=== PATIENT | female | born 1990 | race Caucasian/White ===

== ENCOUNTER → 2021-09-08 10:12 | Outpatient (BNVA) | payer OTHER, SELFPAY | PROVIDERS: Visit Provider Surgery | DX: Z13.89 Encounter for screening for other disorder (principal) ==

== ENCOUNTER 2021-09-08 10:40 | Outpatient (REF) | payer OTHER, SELFPAY ==
--- NOTE | ~2021-09-08 | US_ITS ---
EXAMINATION: US ABDOMEN LIMITED CLINICAL INFORMATION: Abdominal pain. COMPARISON: None TECHNIQUE: Real-time imaging of the right upper quadrant abdominal viscera. FINDINGS: PANCREAS: The visualized portion of the pancreas head and body are normal, portion of the pancreatic body and tail, not visualized are obscured by bowel gas. LIVER: Normal. The liver is normal in size. The liver contour is normal. Increased echogenicity of the liver parenchyma, this can be seen in the setting of hepatic steatosis or liver parenchymal disease. No focal hepatic lesion. There is no intrahepatic biliary duct dilatation seen. GALLBLADDER: Normal. The gallbladder is physiologically distended without evidence of stones, sludge, polyps, wall thickening or pericholecystic fluid. COMMON BILE DUCT: Normal in caliber measuring 0.3 cm in diameter. RIGHT KIDNEY: Normal. No hydronephrosis. No renal calculi or focal parenchymal lesions. The kidney measures 12 cm in maximum dimension. FREE FLUID: None. US/US abdomen limited IMPRESSION: Exam somewhat limited due to patient's body habitus and bowel gas. No evidence of gallbladder disease or gallstones. Increased echogenicity of the liver parenchyma, this can be seen in the setting of hepatic steatosis or liver parenchymal disease.
[2021-09-08 12:07] LABS: Hematocrit 40.8 % (37.0-47.0); Hemoglobin 13.6 g/dl (12.0-16.0); Mean Corpuscular HGB Conc 33.3 g/dl (31.0-35.0); Mean Corpuscular Hemoglobin 31.4 pg (27.0-33.0); Mean Corpuscular Volume 94.2 fL (80.0-98.0); Mean Platelet Volume 9.7 fL (9.4-12.3); Platelet Count 335 X10*3/uL (160-400); Red Blood Count 4.33 X10*6/uL (4.20-5.50); Red Cell Distribution Width 12.2 % (11.0-16.0); White Blood Count 5.7 X10*3/uL (4.8-10.8)
[2021-09-08 12:23] LABS: Alanine Aminotransferase 29 U/L (0-31); Albumin Level 4.4 g/dL (3.5-5.0); Alkaline Phosphatase 78 U/L (39-117); Anion Gap 11 (12-20); Aspartate Amino Transferase 19 U/L (5-31); Bilirubin Direct < 0.2 mg/dL (0.0-0.5); Bilirubin Total 0.3 mg/dL (0.0-1.0); Blood Urea Nitrogen 13 mg/dL (9-16); Calcium 9.9 mg/dL (8.4-10.2); Carbon Dioxide 28 mmol/L (22-29); Chloride 103 mmol/L (96-108); Estimated Glomerular Filt Rate > 60; Glucose Random 92 mg/dL (60-115); Potassium 4.6 mmol/L (3.3-5.1); Sodium 137 mmol/L (135-145); Total Protein 7.8 g/dL (6.5-8.0)
== END 2021-09-08 10:41 | disposition home or self-care (01) ==
LOC: HO.US 10:40
PROVIDERS: Visit Provider Surgery
DX: R10.9 Unspecified abdominal pain (principal)
CPT/HCPCS: 36415; 76705; 80048; 80076; 85027

== ENCOUNTER 2021-09-09 06:46 | Observation (INO) | payer OTHER, SELFPAY ==
[2021-09-09] VITALS (7 sets, daily range): BP systolic 110–152; BP diastolic 55–78; PULSE 74–103; RESP 12–18; TEMP 36.8–36.9; O2SAT 96–99; BMI 33.4
--- NOTE | ~2021-09-09 | CT_ITS ---
EXAMINATION: CT ABDOMEN AND PELVIS WITH CONTRAST CLINICAL INFORMATION: Right upper quadrant pain and recent negative ultrasound COMPARISON: Ultrasound abdomen from 09/08/2021 TECHNIQUE: Multidetector volumetric images were obtained from the superior aspect of the liver through the pubic symphysis following administration 85 mL of Omnipaque 350 intravenous contrast. Sagittal and coronal reformatted images were obtained on the technologist's workstation. Oral contrast: No This CT examination was performed using dose optimization techniques as appropriate, variously including the following: *Automated exposure control *Adjustment of mA and/or kV according to patient size (this includes techniques or standardized protocols for targeted exams where dose is matched to indication/reason for exam; i.e. extremities or head) *Use of iterative reconstruction technique DLP: 930 mGy-cm FINDINGS: LUNG BASES: Bibasilar atelectasis. LIVER, GALLBLADDER, AND BILIARY TREE: The liver is normal in size and shape. Decreased hepatic attenuation suggesting hepatic steatosis. No focal hepatic lesion or biliary ductal dilatation is present. The gallbladder is unremarkable with no evidence of radiopaque gallstones, gallbladder wall thickening, or obvious pericholecystic inflammatory changes. PANCREAS: Unremarkable. SPLEEN: Unremarkable. ADRENAL GLANDS: Unremarkable. KIDNEYS AND URETERS: Nonobstructive calculus in the left renal upper pole measuring 2 mm without hydronephrosis. No right-sided nephrolithiasis or hydronephrosis. BLADDER: Unremarkable. GASTROINTESTINAL TRACT: The small and large bowel are unremarkable. The appendix is unremarkable. ABDOMINAL WALL: No significant hernia is appreciated. LYMPH NODES: No enlarged lymph nodes per size criteria. VASCULAR: Abdominal aorta is nonaneurysmal. PELVIC VISCERA: Anteverted uterus with fluid in the endometrial cavity, correlation with phase of menstruation. Bilateral adnexal/ovarian hypodensities demonstrating fluid attenuation statistically representing cyst. Trace free fluid in the pelvis, possibly physiologic. OSSEOUS STRUCTURES: No large lytic or blastic lesions are noted. CT/CT abdomen pelvis w con IMPRESSION: 1. No acute process of the abdomen or pelvis visualized. 2. Decreased hepatic attenuation suggesting hepatic steatosis. 3. Nonobstructive calculus in the left renal upper pole measuring 2 mm without hydronephrosis 4. Anteverted uterus with fluid in the endometrial cavity, correlation with phase of menstruation. Bilateral adnexal/ovarian hypodensities demonstrating fluid attenuation statistically representing cyst. Trace free fluid in the pelvis, possibly physiologic.
--- NOTE | ~2021-09-09 | NM_ITS ---
EXAMINATION: BILIARY TRACT IMAGING STUDY WITH CCK CLINICAL INFORMATION: Right upper quadrant pain. COMPARISON: CT abdomen/pelvis done earlier today. Abdominal ultrasound dated from 09/08/2021. TECHNIQUE: Serial gamma scintillation camera images were obtained over the abdomen for a total observation period of minutes following the intravenous administration of 5 mCi Tc-99m mebrofenin. FINDINGS: There is good concentration of activity in the liver by 5 minutes post injection. Biliary activity is visualized by 10-15 minutes. The gallbladder is well visualized by 10 minutes. Small bowel is well visualized by 15 minutes. At 45 minutes post radiopharmaceutical injection, Ensure was administered and an additional 60 minutes of images were obtained. There is good emptying of the gallbladder. By the end of the study there is good clearance of activity from the liver and visualization of diffuse small bowel activity. The calculated gallbladder ejection fraction is lesser than 35% (10% at 20 minutes, 9% at 30 minutes, and 5% at 60 minutes). NM/NM hepatobiliary wo pharm IMPRESSION: Visualization of the gallbladder is evidence of a patent cystic duct and strong evidence against the diagnosis of acute cholecystitis. The common bile duct is patent. Gallbladder emptying and ejection fraction are normal. Liver function appears normal.
--- NOTE | 2021-09-09 07:28 | ED_ITS ---
HPI - Abdominal Pain General Chief Complaint: Abdominal Pain Stated Complaint: Abd pain Time Seen by Provider: 09/09/21 07:28 Source: patient Mode of arrival: ambulatory Limitations: no limitations History of Present Illness MD elicited complaint: abdominal pain Pertinent past history: none Onset (ago): day(s) (over the weekend) Pain Consistency: intermittent Location: RUQ Severity: moderate Quality: stabbing Radiation: none Migration to: no migration Exacerbating factors: nothing Relieving factors: nothing Associated symptoms: nausea Related Data Home Medications Medication Instructions Recorded Confirmed No Known Home Meds 09/08/21 09/08/21 Allergies Allergy/AdvReac Type Severity Reaction Status Date / Time No Known Allergies Allergy Unverified 09/08/21 10:25 [No Known Allergies*] Review of Systems Review of Systems Constitutional : No Weight loss, No Fever, No Chills ENT/Mouth : No sore throat, No Rhinorrhea Eyes: No Swelling, No Redness Cardiovascular : No Chest Pain, No SOB, NoEdema Respiratory : No Cough, No Sputum, No Wheezing Gastrointestinal : Positive Nausea, no Vomiting, no Diarrhea, positive abdominal Pain, No Hematochezia, No Melena Genitourinary : No Dysuria, No Urinary Frequency, No Hematuria, No Urgency Musculoskeletal : No joint pain, No Myalgias, No Joint Swelling Skin : No Skin Lesions, No rash Neuro : No Weakness, No Numbness, No Dizziness, No Headache Psych : No Anxiety/Panic, No Depression Heme/Lymph: No Bruising, No Lymphadenopathy Endocrine : No Polyuria, No Polydipsia All other systems reviewed and are negative. [facility] Past Medical History Attestation statement: The following information was validated with the patient. Medical History Abdominal pain Surgical History H/O lumpectomy History of ear surgery Social History Social History Alcohol intake: never Patient Tobacco Use Status: Never used Tobacco Advance Directives: No Advance Directives Information Provided: No Physical Exam ED Vital Signs: Vital Signs - 24 hr 09/09/21 06:54 09/09/21 09:37 09/09/21 10:56 Temperature 98.3 F Pulse Rate 103 H 94 74 Respiratory Rate 18 12 Blood Pressure 152/77 H 137/78 120/70 Pulse Oximetry 96 99 96 09/09/21 12:28 Temperature Pulse Rate 85 Respiratory Rate 16 Blood Pressure 110/55 L Pulse Oximetry 97 BMI result Body Mass Index 33.4 Appearance: Alert. Oriented X3. Mild acute distress. Anxious appears uncomfortable Eyes: Pupils equal, round and reactive to light. ENT: Pharynx normal. Neck: Normal inspection. Neck supple. CVS: Normal heart rate and rhythm. Pulses normal. Respiratory: No respiratory distress. Breath sounds normal. Abdomen: Soft and moderate ttp in RUQ with + huntley's sign also ttp in epigast aimee area Skin: Skin warm and dry. Normal skin color. Normal skin turgor. Extremities: No lower extremity edema. No calf ttp Neuro: Oriented X 3. No motor deficit. No sensory deficit. Course Course Course Narrative: CT scan negative still with pain HIDA scan ordered for possible acalculous cholecystitis, IV toradol ordered signed out to Dr. Castillo pending HIDA scan 230pm MDM - Abdominal Pain MDM Narrative Medical decision making narrative: 30 yo female with no sig PMH here with c/o RUQ and epigastric pain had US yesterday that showed fatty liver but no GB pathology. She has no risk factors for PUD - no NSAID use. At this time she is very ttp in RUQ and epigastric area will obtain labs, hydrate, CT scan for pancreatitis, duodenitis. Dispo per results and findings. Lab Data Result diagrams: 09/09/21 07:43 09/09/21 07:43 Labs: Lab Results 09/09/21 09/09/21 09/09/21 Range/Units 07:43 07:43 08:26 WBC 5.4 (4.8-10.8) X10*3/uL RBC 4.28 (4.20-5.50) X10*6/uL Hgb 13.4 (12.0-16.0) g/dl Hct 39.6 (37.0-47.0) % MCV 92.5 (80.0-98.0) fL MCH 31.3 (27.0-33.0) pg MCHC 33.8 (31.0-35.0) g/dl RDW 12.4 (11.0-16.0) % Plt Count 299 (160-400) X10*3/uL MPV 9.0 L (9.4-12.3) fL Immature Gran % (Auto) 0.2 (0.0-0.4) % Neut % (Auto) 70.0 (45-73) % Lymph % (Auto) 23.2 (20-40) % [place] % (Auto) 5.8 (2-11) % Eos % (Auto) 0.6 (0-4) % Baso % (Auto) 0.2 (0-2) % Lymph # (Auto) 1.2 (1.2-4.9) X10*3/uL [place] # (Auto) 0.3 (0.1-1.2) X10*3/uL Eos # (Auto) 0.0 (0.0-0.4) X10*3/uL Baso # (Auto) 0.0 (0.0-0.2) X10*3/uL Abs Immat Gran (auto) 0.01 (0.00-0.03) X10*3/uL Absolute Neuts (auto) 3.8 (2.0-8.3) x10*3/uL Absolute Nucleated RBC 0.000 (0.0-0.012) X10*3/uL Nucleated RBC % (auto) 0.0 (0.0-0.2) /100WBC Sodium 136 (135-145) mmol/L Potassium 4.3 (3.3-5.1) mmol/L Chloride 104 (96-108) mmol/L Carbon Dioxide 26 (22-29) mmol/L Anion Gap 10 L (12-20) BUN 12 (9-16) mg/dL Creatinine 0.72 (0.5-1.4) mg/dL Estim Creat Clear Calc 142.4 Estimated GFR > 60 Random Glucose 101 (60-115) mg/dL Calcium 9.6 (8.4-10.2) mg/dL Magnesium 2.1 (1.6-2.6) mg/dL Total Bilirubin 0.5 (0.0-1.0) mg/dL Direct Bilirubin 0.2 (0.0-0.5) mg/dL AST 19 (5-31) U/L ALT 26 (0-31) U/L Alkaline Phosphatase 77 (39-117) U/L Troponin I High Sens (<3.5-17.0) ng/L Total Protein 7.3 (6.5-8.0) g/dL Albumin 4.2 (3.5-5.0) g/dL Lipase 13 (8-78) U/L Beta HCG, Quant < 2 mIU/mL Urine Color Urine Appearance Urine pH (5.0-8.0) Ur Specific [place] (1.005-1.025) Urine Protein (NEG-TRACE) MG/DL Urine Glucose (UA) (NEG) MG/DL Urine Ketones (NEG) MG/DL Urine Blood (NEG) Urine Nitrite (NEG) Ur Leukocyte Esterase (NEG) Urine RBC (0) /HPF Urine WBC (0-4) /HPF Ur Squamous Epith Cells /LPF Urine Bacteria /LPF Urine Test NEGATIVE (NEGATIVE) 09/09/21 09/09/21 Range/Units 09:27 10:44 WBC (4.8-10.8) X10*3/uL RBC (4.20-5.50) X10*6/uL Hgb (12.0-16.0) g/dl Hct (37.0-47.0) % MCV (80.0-98.0) fL MCH (27.0-33.0) pg MCHC (31.0-35.0) g/dl RDW (11.0-16.0) % Plt Count (160-400) X10*3/uL MPV (9.4-12.3) fL Immature Gran % (Auto) (0.0-0.4) % Neut % (Auto) (45-73) % Lymph % (Auto) (20-40) % [place] % (Auto) (2-11) % Eos % (Auto) (0-4) % Baso % (Auto) (0-2) % Lymph # (Auto) (1.2-4.9) X10*3/uL [place] # (Auto) (0.1-1.2) X10*3/uL Eos # (Auto) (0.0-0.4) X10*3/uL Baso # (Auto) (0.0-0.2) X10*3/uL Abs Immat Gran (auto) (0.00-0.03) X10*3/uL Absolute Neuts (auto) (2.0-8.3) x10*3/uL Absolute Nucleated RBC (0.0-0.012) X10*3/uL Nucleated RBC % (auto) (0.0-0.2) /100WBC Sodium (135-145) mmol/L Potassium (3.3-5.1) mmol/L Chloride (96-108) mmol/L Carbon Dioxide (22-29) mmol/L Anion Gap (12-20) BUN (9-16) mg/dL Creatinine (0.5-1.4) mg/dL Estim Creat Clear Calc Estimated GFR Random Glucose (60-115) mg/dL Calcium (8.4-10.2) mg/dL Magnesium (1.6-2.6) mg/dL Total Bilirubin (0.0-1.0) mg/dL Direct Bilirubin (0.0-0.5) mg/dL AST (5-31) U/L ALT (0-31) U/L Alkaline Phosphatase (39-117) U/L Troponin I High Sens < 3.5 (<3.5-17.0) ng/L Total Protein (6.5-8.0) g/dL Albumin (3.5-5.0) g/dL Lipase (8-78) U/L Beta HCG, Quant mIU/mL Urine Color YELLOW Urine Appearance CLEAR Urine pH 6.0 (5.0-8.0) Ur Specific [place] 1.010 (1.005-1.025) Urine Protein NEG (NEG-TRACE) MG/DL Urine Glucose (UA) NEG (NEG) MG/DL Urine Ketones NEG (NEG) MG/DL Urine Blood TRACE (NEG) Urine Nitrite NEG (NEG) Ur Leukocyte Esterase NEG (NEG) Urine RBC 0-2 (0) /HPF Urine WBC 0-2 (0-4) /HPF Ur Squamous Epith Cells TRACE /LPF Urine Bacteria NONE /LPF Urine Test (NEGATIVE) ECG Data Attestation: I personally reviewed and interpreted this ECG as follows: ECG interpretation date: 09/09/21 ECG interpretation time: 10:19 Interpretation: Rate: 76 Rhythm: NSR [place]: normal Normal P waves. Normal HILARIO. Normal QRS complex. ST T wave : normal no EMELI qTC: normal prior studies: no acute ischemia The study has been interpreted contemporaneously by me. Discharge Plan Discharge Clinical Impression: Abdominal pain Patient Disposition: Still a Patient Prescriptions: No Action No Known Home Meds 0RF
[2021-09-09 07:47] LABS: MANUAL DIFF FLAG NO
[2021-09-09 07:54] LABS: Basophils Percent Auto 0.2 % (0-2); Eosinophils Percent Auto 0.6 % (0-4); Hematocrit 39.6 % (37.0-47.0); Hemoglobin 13.4 g/dl (12.0-16.0); Imm Gran Abs Auto 0.01 X10*3/uL (0.00-0.03); Imm Gran Pct Auto 0.2 % (0.0-0.4); Lymphocytes Absolute Auto 1.2 X10*3/uL (1.2-4.9); Lymphocytes Percent Auto 23.2 % (20-40); Mean Corpuscular HGB Conc 33.8 g/dl (31.0-35.0); Mean Corpuscular Hemoglobin 31.3 pg (27.0-33.0); Mean Corpuscular Volume 92.5 fL (80.0-98.0); Monocytes Absolute Auto 0.3 X10*3/uL (0.1-1.2); Monocytes Percent Auto 5.8 % (2-11); Neutrophils Absolute Auto 3.8 x10*3/uL (2.0-8.3); Platelet Count 299 X10*3/uL (160-400); Red Blood Count 4.28 X10*6/uL (4.20-5.50); Red Cell Distribution Width 12.4 % (11.0-16.0); White Blood Count 5.4 X10*3/uL (4.8-10.8)
[2021-09-09] MEDS: diphenhydrAMINE HCL 50 MG/ML VIAL 25 MG IVPUSH (07:57)
[2021-09-09] MEDS: 0.9 % Sodium Chloride 1,000 ML 999 ML IVCONT (07:57)
[2021-09-09] MEDS: Metoclopramide HCl 10 MG/2 ML VIAL 5 MG IVPUSH (07:59)
[2021-09-09] MEDS: Famotidine/PF 20 MG/2 ML VIAL IVPUSH (08:01)
[2021-09-09 08:07] LABS: Alanine Aminotransferase 26 U/L (0-31); Albumin Level 4.2 g/dL (3.5-5.0); Alkaline Phosphatase 77 U/L (39-117); Anion Gap 10 (12-20); Aspartate Amino Transferase 19 U/L (5-31); Bilirubin Direct 0.2 mg/dL (0.0-0.5); Bilirubin Total 0.5 mg/dL (0.0-1.0); Blood Urea Nitrogen 12 mg/dL (9-16); Calcium 9.6 mg/dL (8.4-10.2); Carbon Dioxide 26 mmol/L (22-29); Chloride 104 mmol/L (96-108); Creatinine Clr Calc Pharmacy 142.4; Estimated Glomerular Filt Rate > 60; Glucose Random 101 mg/dL (60-115); Lipase 13 U/L (8-78); Magnesium 2.1 mg/dL (1.6-2.6); Potassium 4.3 mmol/L (3.3-5.1); Sodium 136 mmol/L (135-145); Total Protein 7.3 g/dL (6.5-8.0)
[2021-09-09 08:12] LABS: HCG Quantitative < 2 mIU/mL
[2021-09-09 08:39] LABS: UPreg QC Valid YES; Urine Pregnancy NEGATIVE (NEGATIVE)
[2021-09-09] MEDS: iohexoL 350 MG/ML 100 ML INFUS..BTL 85 ML IV (08:55)
[2021-09-09] MEDS: Ketorolac Tromethamine 30 MG/ML VIAL IVPUSH ×2 (09:39→23:14)
[2021-09-09 09:40] LABS: Appearance Urine CLEAR; Color Urine YELLOW; Glucose Urine UA NEG (NEG); Leukocyte Esterase Urine NEG (NEG); Nitrite Urine NEG (NEG); UACC Culture Trigger NO; Urine Blood TRACE (NEG); Urine Ketones NEG (NEG); Urine Protein NEG (NEG-TRACE)
[2021-09-09 10:00] LABS: RBC Urine 0-2 /HPF (0); WBC Urine 0-2 /HPF (0-4)
--- NOTE | 2021-09-09 10:02 | ECG_ITS ---
Test Reason : abdominal pain Blood Pressure : / mmHG Vent. Rate : 076 BPM Atrial Rate : 076 BPM P-R Int : 162 ms QRS Dur : 092 ms QT Int : 384 ms P-R-T Axes : 052 041 016 degrees QTc Int : 432 ms Normal sinus rhythm Normal ECG No significant changes when compared with the previous EKG of 08 september 2018 Referred By: Abiola Apple Electronically Signed By:LEONIE GRACE
[2021-09-09 10:03] LABS: Squamous Epithelial Cell Urine TRACE /LPF
[2021-09-09] MEDS: HYDROmorphone HCl 0.5 MG/0.5 ML SYRINGE IVPUSH ×2 (10:29→16:27)
[2021-09-09 11:29] LABS: Troponin-I High Sensitivity < 3.5 ng/L (<3.5-17.0)
--- NOTE | 2021-09-09 13:30 | PC.NURSE ---
pt in Nuc Med
[2021-09-09] MEDS: ondansetron HCL 4 MG/2 ML VIAL IVPUSH (16:27)
--- NOTE | 2021-09-09 16:30 | P.HPGS_ITS ---
History of Present Illness History of Present Illness Date of Service: 09/17/21 Chief complaint: Right sided rib pain Narrative: Sienna Goodson is a 30 year old female who came to the ED this morning because of pain initially thought to be on the right upper quadrant. She says that she has been using this for about 3 days now. This had been practically constant. I had actually seen her in the office yesterday. I had for an ultrasound which did not reveal any gallstones or any allergy. Her LFTs as well as her CBC with or within normal. She were ever states that the pain was severe at around 02:30 this morning. She describes this as worse when she is taking deep breaths or when she tries to sit up from bed. This seems to be worse with movement as well. She says that because of her severe painy, she was nauseous but she otherwise has had no vomiting. She denies any association of her pain with oral intake or meals. She denies any fever or chills. She did mention that she may have had some watery stools yesterday. Review of Systems Constitutional: Constitutional: Denies chills and Denies fever(s) Cardiovascular: Cardiovascular: Denies chest pain, Denies dyspnea and Denies dyspnea on exertion Respiratory: Respiratory: Denies cough, Denies dyspnea and Denies dyspnea on exertion Gastrointestinal: Gastrointestinal: Denies hematochezia and Denies change in bowel habits Genitourinary: Genitourinary: Denies hematuria Musculoskeletal: Musculoskeletal: Denies back pain and Denies limited range of motion Neurologic: Denies focal weakness and Denies convulsions Psychiatric: Psychiatric: Denies depression and Denies mood swings [facility] Past Medical History Medical History (Updated 09/16/21 @ 00:03 by Alvarado Mercedes) Abdominal pain Rib pain Surgical History Surgical History H/O lumpectomy History of ear surgery Social History Social History Alcohol intake: never Patient Tobacco Use Status: Never used Tobacco service: No Current occupational status: employed Meds Allergies Allergy/AdvReac Type Severity Reaction Status Date / Time No Known Allergies Allergy Unverified 09/08/21 10:25 [No Known Allergies*] Active Medications: Current Medications Acetaminophen (Acetaminophen Supp 650 Mg Supp.Rect) 650 mg ME Q6H PRN PRN Reason: Pain, Mild (Pain Scale 1-3) Ketorolac Tromethamine (Ketorolac Tromethamine 30 Mg/Ml Vial) 30 mg IVPUSH Q6H PRN PRN Reason: pain, severe Morphine Sulfate (Morphine Sulfate 4 Mg/Ml Cartridge) 3 mg IVPUSH Q3H PRN; Protocol PRN Reason: Pain, Severe (Pain Scale 7-10) Ondansetron HCl (Ondansetron Hcl 4 Mg/2 Ml Vial) 4 mg IVPUSH Q8H PRN PRN Reason: Nausea and Vomiting Sodium Chloride (0.9 % Sodium Chloride Flush 3 Ml Syringe) 3 ml IVFLUSH QSHIFT HASEEB Physical Exam Vital Signs: Vital Signs: Last Vital Signs Temp 98.5 F 09/09/21 16:06 Pulse 90 09/09/21 16:06 Resp 16 09/09/21 12:28 BP 128/75 09/09/21 16:06 Pulse Ox 97 09/09/21 16:06 BMI result Body Mass Index 33.4 Const: General: comfortable and no acute distress Orientation/consciousness: patient oriented x3 Neck: Neck: Yes no lymphadenopathy Chest: Other: She has severe point tenderness on the lower most rib yearly Resp: Auscultation: clear to auscultation bilaterally Cardio: Rhythm: regular rhythm GI: Other: No Cisneros's sign Palpation (GI): Soft to palpation, nontender and no guarding Neuro: General: patient oriented x3 Results Results Labs: Short CBC 09/09/21 Range/Units 07:43 WBC 5.4 (4.8-10.8) X10*3/uL Hgb 13.4 (12.0-16.0) g/dl Hct 39.6 (37.0-47.0) % Plt Count 299 (160-400) X10*3/uL BMP 09/09/21 07:43 Sodium 136 Potassium 4.3 Chloride 104 Carbon Dioxide 26 BUN 12 Creatinine 0.72 Calcium 9.6 Liver Function 09/09/21 Range/Units 07:43 Total Bilirubin 0.5 (0.0-1.0) mg/dL Direct Bilirubin 0.2 (0.0-0.5) mg/dL AST 19 (5-31) U/L ALT 26 (0-31) U/L Alkaline Phosphatase 77 (39-117) U/L Albumin 4.2 (3.5-5.0) g/dL Urine 09/09/21 09/09/21 Range/Units 08:26 09:27 Urine Color YELLOW Urine Appearance CLEAR Urine pH 6.0 (5.0-8.0) Ur Specific [place] 1.010 (1.005-1.025) Urine Protein NEG (NEG-TRACE) MG/DL Urine Glucose (UA) NEG (NEG) MG/DL Urine Test NEGATIVE (NEGATIVE) Additional studies: Laboratory Results WBC 5.4 X10*3/uL (4.8-10.8) 09/09/21 07:43 RBC 4.28 X10*6/uL (4.20-5.50) 09/09/21 07:43 Hgb 13.4 g/dl (12.0-16.0) 09/09/21 07:43 Hct 39.6 % (37.0-47.0) 09/09/21 07:43 MCV 92.5 fL (80.0-98.0) 09/09/21 07:43 MCH 31.3 pg (27.0-33.0) 09/09/21 07:43 MCHC 33.8 g/dl (31.0-35.0) 09/09/21 07:43 RDW 12.4 % (11.0-16.0) 09/09/21 07:43 Plt Count 299 X10*3/uL (160-400) 09/09/21 07:43 MPV 9.0 fL (9.4-12.3) L 09/09/21 07:43 Immature Gran % (Auto) 0.2 % (0.0-0.4) 09/09/21 07:43 Neut % (Auto) 70.0 % (45-73) 09/09/21 07:43 Lymph % (Auto) 23.2 % (20-40) 09/09/21 07:43 [place] % (Auto) 5.8 % (2-11) 09/09/21 07:43 Eos % (Auto) 0.6 % (0-4) 09/09/21 07:43 Baso % (Auto) 0.2 % (0-2) 09/09/21 07:43 Lymph # (Auto) 1.2 X10*3/uL (1.2-4.9) 09/09/21 07:43 [place] # (Auto) 0.3 X10*3/uL (0.1-1.2) 09/09/21 07:43 Eos # (Auto) 0.0 X10*3/uL (0.0-0.4) 09/09/21 07:43 Baso # (Auto) 0.0 X10*3/uL (0.0-0.2) 09/09/21 07:43 Abs Immat Gran (auto) 0.01 X10*3/uL (0.00-0.03) 09/09/21 07:43 Absolute Neuts (auto) 3.8 x10*3/uL (2.0-8.3) 09/09/21 07:43 Absolute Nucleated RBC 0.000 X10*3/uL (0.0-0.012) 09/09/21 07:43 Nucleated RBC % (auto) 0.0 /100WBC (0.0-0.2) 09/09/21 07:43 Sodium 136 mmol/L (135-145) 09/09/21 07:43 Potassium 4.3 mmol/L (3.3-5.1) 09/09/21 07:43 Chloride 104 mmol/L (96-108) 09/09/21 07:43 Carbon Dioxide 26 mmol/L (22-29) 09/09/21 07:43 Anion Gap 10 (12-20) L 09/09/21 07:43 BUN 12 mg/dL (9-16) 09/09/21 07:43 Creatinine 0.72 mg/dL (0.5-1.4) 09/09/21 07:43 Estim Creat Clear Calc 142.4 09/09/21 07:43 Estimated GFR > 60 09/09/21 07:43 Random Glucose 101 mg/dL (60-115) 09/09/21 07:43 Calcium 9.6 mg/dL (8.4-10.2) 09/09/21 07:43 Magnesium 2.1 mg/dL (1.6-2.6) 09/09/21 07:43 Total Bilirubin 0.5 mg/dL (0.0-1.0) 09/09/21 07:43 Direct Bilirubin 0.2 mg/dL (0.0-0.5) 09/09/21 07:43 AST 19 U/L (5-31) 09/09/21 07:43 ALT 26 U/L (0-31) 09/09/21 07:43 Alkaline Phosphatase 77 U/L (39-117) 09/09/21 07:43 Troponin I High Sens < 3.5 ng/L (<3.5-17.0) 09/09/21 10:44 Total Protein 7.3 g/dL (6.5-8.0) 09/09/21 07:43 Albumin 4.2 g/dL (3.5-5.0) 09/09/21 07:43 Lipase 13 U/L (8-78) 09/09/21 07:43 Beta HCG, Quant < 2 mIU/mL 09/09/21 07:43 Urine Color YELLOW 09/09/21 09:27 Urine Appearance CLEAR 09/09/21 09:27 Urine pH 6.0 (5.0-8.0) 09/09/21 09:27 Ur Specific [place] 1.010 (1.005-1.025) 09/09/21 09:27 Urine Protein NEG MG/DL (NEG-TRACE) 09/09/21 09:27 Urine Glucose (UA) NEG MG/DL (NEG) 09/09/21 09:27 Urine Ketones NEG MG/DL (NEG) 09/09/21 09:27 Urine Blood TRACE (NEG) 09/09/21 09:27 Urine Nitrite NEG (NEG) 09/09/21 09:27 Ur Leukocyte Esterase NEG (NEG) 09/09/21 09:27 Urine RBC 0-2 /HPF (0) 09/09/21 09:27 Urine WBC 0-2 /HPF (0-4) 09/09/21 09:27 Ur Squamous Epith Cells TRACE /LPF 09/09/21 09:27 Urine Bacteria NONE /LPF 09/09/21 09:27 Urine Test NEGATIVE (NEGATIVE) 09/09/21 08:26 Impressions Abdomen/Pelvis CT 09/09/21 08:50 IMPRESSION: 1. No acute process of the abdomen or pelvis visualized. 2. Decreased hepatic attenuation suggesting hepatic steatosis. 3. Nonobstructive calculus in the left renal upper pole measuring 2 mm without hydronephrosis 4. Anteverted uterus with fluid in the endometrial cavity, correlation with phase of menstruation. Bilateral adnexal/ovarian hypodensities demonstrating fluid attenuation statistically representing cyst. Trace free fluid in the pelvis, possibly physiologic. Hepatobiliary Scan Nuclear Medicine 09/09/21 15:45 IMPRESSION: Visualization of the gallbladder is evidence of a patent cystic duct and strong evidence against the diagnosis of acute cholecystitis. The common bile duct is patent. Gallbladder emptying and ejection fraction are normal. Liver function appears normal. Assessment and Plan (1) Rib pain: Status: Acute Plan We had initially thought that she was having on the right upper quadrant. Imaging studies including ultrasound and CAT scan reveal any gallstones or any pathology in the right upper quadrant intra-abdominally. She had a HIDA scan done as well says now. This revealed adequate ejection fraction 35%. As per the radiologist, this does not appear to be highly suggestive of dyskinesia. Her examination is significant for marked point tenderness on the lower most ribs on the right side even with gentle palpation. This appears to be more suggestive of a musculoskeletal origin including costochondritis. Review of her CT scan does not reveal any fracture of the ribs. She denies any recent trauma to the chest on the right side either. Her LFTs are also within normal. In view of her tenderness and pain on this area, I will admit her for obser vation for pain control. She has been ordered for Toradol, and morphine. She is allowed to eat. Hopefully, will achieve good pain control. If not, I will also consult the hospitalist service. She otherwise appear hemodynamically stable Quality Stroke Does the patient have a stroke diagnosis?: No VTE Prior VTE?: No VTE Risk Level:: Medical - low VTE Device Contraindication: Treatment Not Indicated VTE Drug Contraindication: Treatment Not Indicated Procedures Date of Service Date of Service: 09/09/21
--- NOTE | 2021-09-09 16:43 | PHA.MEDREC ---
Pharmacy Consult ? Medication Reconciliation Pharmacy has completed the medication reconciliation.
[2021-09-09] MEDS: 0.9 % Sodium Chloride Flush 3 ML SYRINGE IVFLUSH (23:14)
[2021-09-10 03:51] VITALS: BP 105/52; PULSE 73; RESP 15; TEMP 36.2; O2SAT 97
[2021-09-10] MEDS: Ketorolac Tromethamine 30 MG/ML VIAL IVPUSH (04:11)
[2021-09-10] MEDS: Morphine Sulfate 4 MG/ML CARTRIDGE 3 MG IVPUSH (06:33)
[2021-09-10 07:29] VITALS: BP 119/62; PULSE 77; RESP 20; TEMP 36.3; O2SAT 97
--- NOTE | 2021-09-10 07:48 | PM.PNGS ---
Subjective Subjective Date of Service: 09/11/21 Interval history: continued to have pain along lowermost rib on right last night now much better this AM - says Morphine dose provided good relief tolerating diet no N/V Physical Exam Vital Signs: Vital Signs: Last Vital Signs Temp 97.3 F 09/10/21 07:29 Pulse 77 09/10/21 07:29 Resp 20 09/10/21 07:29 BP 119/62 09/10/21 07:29 Pulse Ox 97 09/10/21 07:29 BMI result Body Mass Index 33.4 Const: General: comfortable and no acute distress Resp: Effort & Inspection: normal respiratory effort Cardio: Rate: regular rate GI: Other: soft, point tenderness on lowermost rib anteriorly, no ecchymosis, no redness Objective Data Active Medications Acetaminophen (Acetaminophen Supp 650 Mg Supp.Rect) 650 mg [place] Q6H PRN PRN Reason: Pain, Mild (Pain Scale 1-3) Ketorolac Tromethamine (Ketorolac Tromethamine 30 Mg/Ml Vial) 30 mg IVPUSH Q6H PRN PRN Reason: pain, severe Last Admin: 09/10/21 04:11 Dose: 30 mg Documented by: WILIAM Morphine Sulfate (Morphine Sulfate 4 Mg/Ml Cartridge) 3 mg IVPUSH Q3H PRN; Protocol PRN Reason: Pain, Severe (Pain Scale 7-10) Last Admin: 09/10/21 06:33 Dose: 3 mg Documented by: WILIAM Ondansetron HCl (Ondansetron Hcl 4 Mg/2 Ml Vial) 4 mg IVPUSH Q8H PRN PRN Reason: Nausea and Vomiting Oxycodone HCl (Oxycodone Hcl Immed Release 5 Mg Tablet) 5 mg PO Q4H PRN PRN Reason: Pain, Moderate (Pain Scale 4-6 Oxycodone HCl (Oxycodone Hcl Immed Release 5 Mg Tablet) 10 mg PO Q4H PRN PRN Reason: Pain, Severe (Pain Scale 7-10) Pharmacy Consult (Consult Rx Perform Med Rec) 1 each MISCELLANE ONCE PRN PRN Reason: Consult order Sodium Chloride (0.9 % Sodium Chloride Flush 3 Ml Syringe) 3 ml IVFLUSH [facility] Last Admin: 09/09/21 23:14 Dose: 3 ml Documented by: WILIAM Labs CBC & Chem 7: 09/09/21 07:43 09/09/21 07:43 Labs: Laboratory Results - last 24 hr 09/09/21 09/09/21 09/09/21 07:43 07:43 08:26 MCV 92.5 MCH 31.3 MCHC 33.8 RDW 12.4 Plt Count 299 MPV 9.0 L Immature Gran % (Auto) 0.2 Neut % (Auto) 70.0 Lymph % (Auto) 23.2 [place] % (Auto) 5.8 Eos % (Auto) 0.6 Baso % (Auto) 0.2 Lymph # (Auto) 1.2 [place] # (Auto) 0.3 Eos # (Auto) 0.0 Baso # (Auto) 0.0 Abs Immat Gran (auto) 0.01 Absolute Neuts (auto) 3.8 Absolute Nucleated RBC 0.000 Nucleated RBC % (auto) 0.0 Anion Gap 10 L Estim Creat Clear Calc 142.4 Estimated GFR > 60 Random Glucose 101 Calcium 9.6 Magnesium 2.1 Total Bilirubin 0.5 Direct Bilirubin 0.2 AST 19 ALT 26 Alkaline Phosphatase 77 Troponin I High Sens Total Protein 7.3 Albumin 4.2 Lipase 13 Beta HCG, Quant < 2 Urine Color Urine Appearance Urine pH Ur Specific [place] Urine Protein Urine Glucose (UA) Urine Ketones Urine Blood Urine Nitrite Ur Leukocyte Esterase Urine RBC Urine WBC Ur Squamous Epith Cells Urine Bacteria Urine Test NEGATIVE 09/09/21 09/09/21 09:27 10:44 MCV MCH MCHC RDW Plt Count MPV Immature Gran % (Auto) Neut % (Auto) Lymph % (Auto) [place] % (Auto) Eos % (Auto) Baso % (Auto) Lymph # (Auto) [place] # (Auto) Eos # (Auto) Baso # (Auto) Abs Immat Gran (auto) Absolute Neuts (auto) Absolute Nucleated RBC Nucleated RBC % (auto) Anion Gap Estim Creat Clear Calc Estimated GFR Random Glucose Calcium Magnesium Total Bilirubin Direct Bilirubin AST ALT Alkaline Phosphatase Troponin I High Sens < 3.5 Total Protein Albumin Lipase Beta HCG, Quant Urine Color YELLOW Urine Appearance CLEAR Urine pH 6.0 Ur Specific [place] 1.010 Urine Protein NEG Urine Glucose (UA) NEG Urine Ketones NEG Urine Blood TRACE Urine Nitrite NEG Ur Leukocyte Esterase NEG Urine RBC 0-2 Urine WBC 0-2 Ur Squamous Epith Cells TRACE Urine Bacteria NONE Urine Test Procedures Date of Service Date of Service: 09/10/21 Progress Note: A&P Assessment and plan (1) Rib pain: Status: Acute Assessment and Plan: rib pain on right - now controlled with Morphine US, CT, HIDA do not show intraabdl etiology or GB disease LFTs, CBC within normal no fever, no GI complaints pain mgt - start PO oxycodone Time Spent With Patient Time: Total time spent is greater than 50% in coordination of care (as documented) at patient's floor/unit and/or counseling patient: Quality Stroke Does the patient have a stroke diagnosis?: No VTE Prior VTE?: No VTE Risk Level:: Medical - low VTE Device Contraindication: Treatment Not Indicated VTE Drug Contraindication: Treatment Not Indicated
[2021-09-10 08:55] LABS: COVID-19 Test Negative (Negative)
[2021-09-10] MEDS: 0.9 % Sodium Chloride Flush 3 ML SYRINGE IVFLUSH ×3 (09:11→21:11)
[2021-09-10 11:12] VITALS: BP 119/74; PULSE 85; RESP 20; TEMP 36.3; O2SAT 99
[2021-09-10] MEDS: oxyCODONE HCl Immed Release 5 MG TABLET PO (11:15)
[2021-09-10] MEDS: ondansetron HCL 4 MG/2 ML VIAL IVPUSH (11:16)
[2021-09-10] MEDS: Morphine Sulfate 4 MG/ML CARTRIDGE 2 MG IVPUSH ×2 (13:03→21:10)
[2021-09-10 15:41] VITALS: BP 109/62; PULSE 72; RESP 18; TEMP 36.4; O2SAT 97
--- NOTE | 2021-09-10 16:27 | MHC.CM.PN ---
PATIENT IS FULLY INDEPENDENT NO DME OR VNA SERVICES SHE ORIGINALLY SEES PCP AT [facility]; HOWEVER, HER PCP HAS LEFT THE PRACTICE PATIENT IS COVID VACCINATED X 3. SHE IS HOPING TO BE ABLE TO RETURN HOME WITH NO SERVICES. HOLM 07/13 IN CHART.
--- NOTE | 2021-09-10 17:29 | PM.EVENT ---
Event Note Date of Service: 09/10/21 Event Note: much better pain control this afternoon says she feels more comfortable point tenderness on same spot on lowermost rib anteriorly no Cisneros's sign looks well hope to achieve good pain control with PO meds, then ok to dc home
[2021-09-10] MEDS: oxyCODONE HCl Immed Release 5 MG TABLET 10 MG PO (18:33)
[2021-09-10 20:00] VITALS: BP 112/65; PULSE 70; RESP 18; TEMP 36.5; O2SAT 98
[2021-09-11] VITALS: BP 123/66; PULSE 81; RESP 18; TEMP 36.5; O2SAT 98
[2021-09-11 04:00] VITALS: BP 153/70; PULSE 99; RESP 18; TEMP 36.6; O2SAT 97
[2021-09-11 07:42] VITALS: BP 135/76; PULSE 87; RESP 18; TEMP 36.2; O2SAT 98
--- NOTE | 2021-09-11 08:30 | P.PNGS_ITS ---
Subjective Subjective Date of Service: 09/11/21 <Susan Lutz PA-C - Last Filed: 09/11/21 08:33> 09/11/21 <Demetris Cobos MD - Last Filed: 09/11/21 13:49> Interval history: Feeling overall better but having difficulty with pain management. Tolerating solid diet, OOB. <Susan Lutz PA-C - Last Filed: 09/11/21 08:33> Physical Exam Vital Signs: Vital Signs: Last Vital Signs Temp 97.2 F 09/11/21 07:42 Pulse 87 09/11/21 07:42 Resp 18 09/11/21 07:42 BP 135/76 09/11/21 07:42 Pulse Ox 98 09/11/21 07:42 BMI result Body Mass Index 33.4 <Susan Lutz PA-C - Last Filed: 09/11/21 08:33> Const: General: comfortable, no acute distress and alert <Susan Lutz PA-C - Last Filed: 09/11/21 08:33> Orientation/consciousness: patient oriented x3 <Susan Lutz PA-C - Last Filed: 09/11/21 08:33> Chest: Other: tender along last right rib <Susan Lutz PA-C - Last Filed: 09/11/21 08:33> Resp: Effort & Inspection: normal respiratory effort <Susan Lutz PA-C - Last Filed: 09/11/21 08:33> GI: Inspection: No distended <Susan Lutz PA-C - Last Filed: 0 09/11/21 08:33> Palpation (GI): Soft to palpation and Tenderness to palpation present (GI) in the RUQ <Susan Lutz PA-C - Last Filed: 09/11/21 08:33> Skin: General skin exam: no rashes or lesions noted <MARJORIE Villeda Last Filed: 09/11/21 08:33> Neuro: General: patient oriented x3 <MARJORIE Villeda Last Filed: 09/11/21 08:33> Objective Data Active Medications Acetaminophen (Acetaminophen 325 Mg Tablet) 650 mg PO Q6H PRN PRN Reason: Fever Ibuprofen (Ibuprofen 600 Mg Tablet) 600 mg PO Q6H HASEEB Morphine Sulfate (Morphine Sulfate 4 Mg/Ml Cartridge) 2 mg IVPUSH Q3H PRN; Protocol PRN Reason: Pain, Severe (Pain Scale 7-10) Last Admin: 09/10/21 21:10 Dose: 2 mg Documented by: WILIAM Ondansetron HCl (Ondansetron Hcl 4 Mg/2 Ml Vial) 4 mg IVPUSH Q8H PRN PRN Reason: Nausea and Vomiting Last Admin: 09/10/21 11:16 Dose: 4 mg Documented by: DAVID Pharmacy Consult (Consult Rx Perform Med Rec) 1 each MISCELLANE ONCE PRN PRN Reason: Consult order Sodium Chloride (0.9 % Sodium Chloride Flush 3 Ml Syringe) 3 ml IVFLUSH QSHIFT HASEEB Last Admin: 09/10/21 21:11 Dose: 3 ml Documented by: WILIAM Tramadol HCl (Tramadol Hcl 50 Mg Tablet) 50 mg PO Q4H PRN PRN Reason: Pain, Moderate (Pain Scale 4-6 <Susan Lutz PA-C - Last Filed: 09/11/21 08:33> Labs CBC & Chem 7: : 09/09/21 07:43 09/09/21 07:43 <Susan Lutz PA-C - Last Filed: 09/11/21 08:33> Labs: Laboratory Results - last 24 hr 09/10/21 08:30 COVID-19 ([facility]) Negative COVID-19 Clin Com See Note <Susan Lutz PA-C - Last Filed: 09/11/21 08:33> Procedures Date of Service Date of Service: 09/11/21 <Susan Lutz PA-C - Last Filed: 09/11/21 08:33> Progress Note: A&P Assessment and plan (1) Rib pain: Status: Acute <Susan Lutz PA-C - Last Filed: 09/11/21 08:33> Assessment and Plan: Feeling better Better response from pain meds Still sore No GI complaints Tolerating diet Exam shows point tenderness on the lower most right ribs Continue pain management Possible DC home today once with better pain control Seen and examined independently - agree with JORGE ALBERTO Lutz <Demetris Cobos MD - Last Filed: 09/11/21 13:49> (2) Abdominal pain: Status: Acute <Susan Lutz PA-C - Last Filed: 09/11/21 08:33> Plan 30 year old female admitted with RUQ pain/ rib pain. Work up included US, CT, HIDA- no intraabdominal etiology or GB disease LFTs, CBC WNL, VSS- afebrile. Tolerating solid diet without worsening of pain. Will make ibuprofen ATC today, try tramadol for pain. Will reassess later today- if pain better controlled, stable for dc to home. <Susan Lutz PA-C - Last Filed: 09/11/21 08:33> Time Spent With Patient Time: Total time spent is greater than 50% in coordination of care (as documented) at patient's floor/unit and/or counseling patient: <Susan Lutz PA-C - Last Filed: 09/11/21 08:33> Quality Stroke Does the patient have a stroke diagnosis?: No <Susan Lutz PA-C - Last Filed: 09/11/21 08:33> VTE Prior VTE?: No <Susan Lutz PA-C - Last Filed: 09/11/21 08:33> VTE Risk Level:: Medical - low <Susan Lutz PA-C - Last Filed: 09/11/21 08:33> VTE Device Contraindication: Treatment Not Indicated <Susan Lutz PA-C - Last Filed: 09/11/21 08:33> VTE Drug Contraindication: Treatment Not Indicated <Susan Lutz PA-C - Last Filed: 09/11/21 08:33>
[2021-09-11] MEDS: Ibuprofen 600 MG TABLET PO ×2 (08:50→14:58)
[2021-09-11] MEDS: 0.9 % Sodium Chloride Flush 3 ML SYRINGE IVFLUSH ×2 (08:51→15:02)
[2021-09-11] MEDS: ondansetron HCL 4 MG/2 ML VIAL IVPUSH (10:33)
[2021-09-11] MEDS: traMADoL HCL 50 MG TABLET PO (11:08)
[2021-09-11 11:58] VITALS: BP 123/58; PULSE 84; RESP 18; TEMP 36.3; O2SAT 97
[2021-09-11] MEDS: Acetaminophen 325 MG TABLET 650 MG PO (12:48)
--- NOTE | 2021-09-11 15:56 | PM.DS ---
DS: Providers Provider Date of Service: 09/11/21 Date of admission: 09/09/21 16:24 Primary care physician: Ana Physician Attending physician on admission: Demetris Cobos Attending physician on discharge: Demetris Cobos DS: Diagnosis Discharge Diagnosis (1) Rib pain: Status: Acute (2) Abdominal pain: Status: Acute DS: Summary Hospital Course Hospital Course: BRIEF HPI: Sienna Goodson is a 30 year old female who came to the ED this morning because of pain, initially thought to be on the right upper quadrant.? She says that she has been using this for about 3 days now.? This has been constant.?She was seen by Dr. Cobos in the office yesterday.? An ultrasound was obtained which did not reveal any gallstones or any pathology.? Her LFTs as well as her CBC was within normal limits. She reports the pain became severe at around 02:30 this morning.?It was exacerbated by deep breaths and movement. She says that because of the severity of pain,?she was nauseous but she has had no vomiting. She denies any association of her pain with oral intake or meals. She denies any fever or chills. She did mention that she may have had some watery stools yesterday. CBC and LFTs remained WNL in the ED. Imaging studies including ultrasound and CAT scan did not reveal any gallstones or any pathology in the right upper quadrant intra-abdominally.? She had a HIDA scan done as well which revealed an adequate ejection fraction of 35%.? This was discussed with radiology, and did not appear to be highly suggestive of dyskinesia. HOSPITAL COURSE: Her examination was significant for marked point tenderness on the lower most ribs on the right side even with gentle palpation, more suggestive of a musculoskeletal origin, possibly costochondritis. Review of her CT scan did not reveal any pathology of the ribs.? She denies any recent trauma to the chest on the right side either. In view of her tenderness and pain uncontrolled on oral analgesics, she was admitted for observation and for pain control.?Toradol and morphine PRN were ordered for pain.?She was allowed to eat. The patient continued to have difficulty with pain control and was still requiring IV analgesics to relieve the pain. She therefore remained inpatient for two days for pain control. Multiple PO analgesic modalities were tried to achieve a comfortable level of pain. She felt well on HD #2 with ATC ibuprofen, tylenol and tramadol. She was tolerating a diet. The pain continued to have no association with oral intake to suggest GB origin. The tenderness remained pinpoint on the right last rib and improved slightly. She felt ready for discharge on 09/11/21 and was discharged to home on ATC ibuprofen/tylenol and tramadol as needed. She is to follow up with her PCP regarding the pain. Status at Discharge Functional status at discharge: independent ambulation Overall status at discharge: patient is progressing back to baseline Time Spent with Patient Time attestation: Total time spent providing and/or coordinating discharge services: Discharge coordination time: Less than 30 minutes Quality: Safe Use of Opioids Does Pt have an Active Cancer Diagnosis on the Problem List?: No Quality: Stroke Does the patient have a stroke diagnosis?: No Physical Exam Vital Signs: Vital Signs: Last Vital Signs Temp 97.4 F 09/11/21 11:58 Pulse 84 09/11/21 11:58 Resp 18 09/11/21 11:58 BP 123/58 L 09/11/21 11:58 Pulse Ox 97 09/11/21 11:58 BMI result Body Mass Index 33.4 Const: General: comfortable, no acute distress and alert Orientation/consciousness: patient oriented x3 Chest: Other: pinpoint tenderness along the last right rib Resp: Effort & Inspection: normal respiratory effort GI: Inspection: No distended Palpation (GI): Soft to palpation, no guarding and not rigid Skin: General skin exam: no rashes or lesions noted and no jaundice Neuro: General: patient oriented x3 Extrem: General: Yes no clubbing, cyanosis or edema Discharge Plan Discharge Patient Disposition: Home, Self-Care Discharge Diagnosis: costochondritis Referrals: Physician,Unknown J [Primary Care Provider] - 1 Week Discharge Medications: New ibuprofen 800 mg tablet 800 mg PO Q8H PRN (Reason: pain) Qty: 30 1RF tramadol 50 mg tablet 50 mg PO Q6H PRN (Reason: pain (scale score 7-10)) Qty: 24 0RF ondansetron 4 mg tablet,disintegrating 4 mg PO Q8H PRN (Reason: nausea) 4 Days Qty: 10 0RF Discharge Orders: Discharge Order (Routine); Ordered 09/11/21 Ordered By: Demetris Cobos Diet: advance to usual diet Activity on Discharge: As tolerated Stand Alone Forms: Patient Portal Discharge page Care Plan Goals: Pain control and gradual return to activity as tolerated. Health Concerns: Rib/abdominal pain Plan of Treatment: NSAIDs and tramadol as needed, ice, rest F/u with PCP Assessment: Improved Patient Instructions: Costochondritis (DC) Discharge Date/Time: 09/11/21 16:29
--- NOTE | 2021-09-11 16:02 | PM.EVENT ---
Event Note Date of Service: 09/11/21 Event Note: Good pain control with tramadol and ibuprofen this afternoon She says she is comfortable now She wants to go home Remains stable Abdomen soft Overall clinical symptoms suggest musculoskeletal origin Will DC home on NSAIDs and tramadol
== END 2021-09-11 16:29 | disposition home or self-care (01) ==
LOC: HO.ED 16:31 → HO.EDOVER 16:33 → HO.S3 17:10
PROVIDERS: Emergency Medicine; Admitting Provider Surgery; Emergency Provider Emergency Medicine; Visit Provider Surgery
DX: R07.81 Pleurodynia (principal); R10.11 Right upper quadrant pain; R11.0 Nausea; M94.0 Chondrocostal junction syndrome [Tietze]; K21.9 Gastro-esophageal reflux disease without esophagitis; Z20.822 Contact with and (suspected) exposure to COVID-19; Z79.899 Other long term (current) drug therapy
CPT/HCPCS: 36415; 74177; 78226; 80048; 80076; 81001; 81025; 83690; 83735; 84484; 84702; 85025; 87635; 93005; 96361; 96374; 96375; 96376; 99218; 99285; A9537; J1170; J1200; J1885; J2270; J2405; J2765; Q9967

== ENCOUNTER 2022-03-23 13:23 | Outpatient (REF) | payer OTHER, SELFPAY | END 2022-03-23 13:24 | disposition home or self-care (01) | LOC: HO.LNP 13:23 | PROVIDERS: Visit Provider Obstetrics & Gynecology | DX: Z32.02 Encounter for pregnancy test, result negative (principal); R87.610 Atypical squamous cells of undetermined significance on cytologic smear of cervix (ASC-US); R87.810 Cervical high risk human papillomavirus (HPV) DNA test positive | CPT/HCPCS: 57454; 81025; 88305 ==

== ENCOUNTER 2022-04-03 15:47 | Outpatient (REF) | payer OTHER, SELFPAY ==
--- NOTE | ~2022-04-03 | US_ITS ---
EXAMINATION: US PELVIS CLINICAL INFORMATION: Unspecified ovarian cyst, last menstrual period 03/19/2022. COMPARISON: CT abdomen and pelvis 09/09/2021 TECHNIQUE: Ultrasound of the pelvis is performed using both transabdominal and transvaginal transducers along with Doppler. Transvaginal imaging is performed due to inadequate visualization transabdominally. FINDINGS: The uterus is heterogeneous and measures 7.3 x 2.3 x 4.1 cm. No discrete fibroids. Endometrial thickness is 0.7 cm. No significant free fluid. Right ovary measures 3.5 x 2.2 x 3.1 cm, volume 12.5 mL. Right ovarian 1.3 x 0.9 x 1.2 cm cyst with septation. Left ovary measures 3.1 x 2.0 x 2.9 cm, volume 9.4 mL. Simple 1.3 x 1.2 x 1.4 cm left ovarian cyst. US/US pelvic and transvaginal IMPRESSION: 1. No discrete fibroids. 2. Multilayered endometrium with thickness of 0.7 cm. 3. No significant free fluid. 4. Right ovarian 1.3 cm mildly complex cyst with septation, possibly physiologic.
== END 2022-04-03 15:48 | disposition home or self-care (01) ==
LOC: HO.US 15:47
PROVIDERS: PCP Internal Medicine; Visit Provider Registered Nurse
DX: N83.201 Unspecified ovarian cyst, right side (principal); N83.202 Unspecified ovarian cyst, left side
CPT/HCPCS: 76830; 76856

== ENCOUNTER 2022-04-06 14:04 | Outpatient (REF) | payer OTHER, SELFPAY ==
[2022-04-07 05:31] LABS: CT PCR NOT DETECTED (Not Detect.); NG PCR NOT DETECTED (Not Detect.)
== END 2022-04-06 14:05 | disposition home or self-care (01) ==
LOC: HO.LNP 14:04
PROVIDERS: Visit Provider Obstetrics & Gynecology
DX: N83.209 Unspecified ovarian cyst, unspecified side (principal); R87.610 Atypical squamous cells of undetermined significance on cytologic smear of cervix (ASC-US); R87.810 Cervical high risk human papillomavirus (HPV) DNA test positive
CPT/HCPCS: 81025; 87491; 87591

== ENCOUNTER 2022-04-24 09:21 | Outpatient (REF) | payer OTHER, SELFPAY ==
[2022-04-24 10:57] LABS: Syphilis Screen Nonreactive (Nonreactive)
[2022-04-24 10:59] LABS: Thyroid Stimulating Hormone 1.26 uIU/mL (0.32-4.0); Vitamin D 25-OH Total 15.1 ng/mL (>30)
[2022-04-24 11:00] LABS: Estimated Average Glucose 105 mg/dL; Hemoglobin A1c % 5.3 %
[2022-04-24 11:09] LABS: HBsAGNum1 0.23 S/CO (0.00-0.99); Hepatitis B Surface Antigen Negative (Negative); ~HepC Num1 0.21 S/CO (0.00-0.79); ~Hepatitis C Antibody Nonreactive (Nonreactive)
[2022-04-24 11:59] LABS: HIV AB/AG Nonreactive (Nonreactive)
[2022-04-24 12:17] LABS: HIV Num 1 0.06 S/CO (0.00-0.99)
[2022-04-27 22:24] LABS: Rubella IgG Antibody <0.90 Index
[2022-04-29 16:03] LABS: Anti-Mullerian Hormone-Female 5.76 ng/mL (0.69-13.39)
[2022-04-29 22:44] LABS: Smooth Muscle Antibody <20 U (<20)
[2022-05-03 01:03] LABS: Estradiol Free 0.58 pg/mL; Estradiol, Ultrasensitive 30 pg/mL; Follicle Stimulating Hormone 5.4 mIU/mL
[2022-05-03 12:54] LABS: CF Ethnicity NG; Cystic Fibrosis NEGATIVE (NEGATIVE)
== END 2022-04-24 09:22 | disposition home or self-care (01) ==
LOC: HO.LAB 09:21
PROVIDERS: PCP Internal Medicine; Visit Provider Advanced Practice Midwife
DX: E66.9 Obesity, unspecified (principal); Z11.9 Encounter for screening for infectious and parasitic diseases, unspecified; Z83.3 Family history of diabetes mellitus; Z31.5 Encounter for procreative genetic counseling; Z31.49 Encounter for other procreative investigation and testing; Z31.430 Encounter of female for testing for genetic disease carrier status for procreative management
CPT/HCPCS: 36415; 81220; 82306; 82397; 82670; 82681; 83001; 83002; 83036; 84146; 84443; 86015; 86762; 86780; 86803; 86850; 86900; 86901; 87340; 87389

== ENCOUNTER 2022-05-25 12:47 | Outpatient (REF) | payer OTHER, SELFPAY ==
--- NOTE | ~2022-05-25 | FL_ITS ---
EXAMINATION: INJECTION FOR HYSTEROSALPINGOGRAM CLINICAL INFORMATION: Female infertility. COMPARISON: None. TECHNIQUE: The uterus was catheterized with a balloon-inflated catheter by Dr. Armando Toribio. Contrast was then injected under fluoroscopy and imaged by the radiologist. FINDINGS: There is a balloon-inflated catheter with contrast opacifying the uterine cavity. There is normal caliber fallopian tubes with contrast extending into bilateral parametrium and cul-de-sac. The balloon was deflated and catheter removed and a single image obtained revealing no intrinsic uterine filling defect. FLUOROSCOPY TIME: 0.2 minutes. DOSE AREA PRODUCT: 5.535 uGy-m2 (microgray-meter squared). FL/FL hysterosalpingography IMPRESSION: Patent bilateral fallopian tubes on fluoroscopy-guided HSG. No intrauterine abnormality seen.
== END 2022-05-25 12:48 | disposition home or self-care (01) ==
LOC: HO.XRAY 12:47
PROVIDERS: Visit Provider Obstetrics & Gynecology
DX: N97.9 Female infertility, unspecified (principal); Z32.02 Encounter for pregnancy test, result negative
CPT/HCPCS: 58340; 74740; 81025

== ENCOUNTER → 2022-06-04 14:08 | Outpatient (BNVA) | payer OTHER, SELFPAY | PROVIDERS: PCP Internal Medicine; Visit Provider Obstetrics & Gynecology | DX: Z13.89 Encounter for screening for other disorder (principal) ==

== ENCOUNTER 2022-06-26 12:54 | Outpatient (REF) | payer OTHER, SELFPAY ==
--- NOTE | ~2022-06-26 | US_ITS ---
EXAMINATION: US PELVIS COMPLETE CLINICAL INFORMATION: Ovarian cyst COMPARISON: Pelvic ultrasound 04/03/2022 TECHNIQUE: Transabdominal and transvaginal imaging was performed. FINDINGS: The uterus is of normal size and echogenicity measuring 6.9 x 2.6 x 4.1 cm. A regular homogeneous endometrium is identified measuring 0.6 cm. Both ovaries are of normal size and echogenicity. The right measures 3.1 x 2.3 x 2.5 cm for a volume of 9.3 mL. The left measures 2.9 x 2.6 x 1.7 cm for a volume of 6.5 mL. Physiologic follicle follicles are present bilaterally. No suspicious cystic ovarian lesion. There is no pelvic free fluid. US/US pelvic and transvaginal IMPRESSION: Physiologic follicle follicles are present bilaterally. No suspicious cystic ovarian lesion.
== END 2022-06-26 12:55 | disposition home or self-care (01) ==
LOC: HO.US 12:54
PROVIDERS: Visit Provider Obstetrics & Gynecology
DX: N83.209 Unspecified ovarian cyst, unspecified side (principal)
CPT/HCPCS: 76830; 76856

== ENCOUNTER 2023-01-28 06:07 | Outpatient (REF) | payer OTHER, SELFPAY ==
[2023-01-28 07:28] LABS: HCG Quantitative < 2 mIU/mL; Thyroid Stimulating Hormone 1.95 uIU/mL (0.32-4.0)
[2023-01-30 07:24] LABS: Follicle Stimulating Hormone 5.6 mIU/mL; Lutenizing Hormone 7.5 mIU/mL
[2023-02-04 18:08] LABS: Progesterone <0.1 ng/mL
[2023-02-05 23:02] LABS: Estradiol Free 0.38 pg/mL; Estradiol, Ultrasensitive 21 pg/mL
== END 2023-01-28 06:08 | disposition home or self-care (01) ==
LOC: HO.LAB 06:07
PROVIDERS: PCP Internal Medicine; Visit Provider Obstetrics & Gynecology Reproductive Endocrinology
DX: Z31.83 Encounter for assisted reproductive fertility procedure cycle (principal)
CPT/HCPCS: 36415; 82670; 82681; 83001; 83002; 84144; 84443; 84702

== ENCOUNTER → 2023-04-19 15:07 | Outpatient (BNVA) | payer OTHER, SELFPAY | PROVIDERS: Visit Provider Obstetrics & Gynecology ==

== ENCOUNTER 2023-05-20 15:07 | Outpatient (AMB) | payer OTHER, SELFPAY ==
--- NOTE | 2023-05-20 15:09 | MHC.OFFVIS ---
Intake Vital Signs 05/20/23 15:12 Height 5 ft 8 in Weight 211 lb 10.3 oz BMI 32.2 BP 118/72 Intake Visit Reasons: preg consult per Accountant Controller Required: No Information Interpreted: non-clinical & clinical Accompanied by: Self / Same As Patient Allergies No Known Allergies [No Known Allergies*] Allergy (Verified 05/20/23 15:12) Patient : Yes HPI HPI Comments History of Present Illness Details Presenting for consult. IVF . No complaints, no pelvic cramping and/or bleeding. Blood type A positive The patient had an ultrasound 2 days ago showed an intrauterine at 8 weeks and 2 days of gestation with a positive heart rate with an RAJIV on 12/26/2023 The patient is on estradiol 2 mg 1 tablet p.o. t.i.d., Benadryl 25 mg 1 tablet p.o. q.d., Claritin 10 mg p.o. q.d. Pepcid 20 mg 1 tablet p.o. q.d. prednisone 10 mg 1 tablet daily low-dose naltrexone 3 mg 1 tablet p.o. daily vitamin 1 tablet p.o. q.d. , Plaquenil 200 mg 1 daily, Lovenox 30 mg subQ twice daily and Prometrium 200 mg 1 tablet vaginally 3 times a day with progesterone in with 75 mg IM once daily. Instructions to discontinue the medication by specific dates were given to the patient by the [facility] Medical History ASCUS with positive high risk HPV Rib pain Abdominal pain Surgical History H/O lumpectomy History of ear surgery Social History Alcohol intake: never Patient Tobacco Use Status: Never used Tobacco service: No Current occupational status: employed Current occupation: [employer] [place] Female Reproductive History Menstrual Age of Menarche: 12 Review of Systems Const All systems reviewed & are unremarkable except as noted in HPI and below Reports as per HPI and Reports no additional complaints GI Reports no additional complaints Reports no additional complaints Assessment & Plan Assessment & Plan (1) Early stage of : Comment: IVF Code(s): Z34.90 - Encounter for supervision of normal , unspecified, unspecified trimester Plan: Discussed with the patient possible complications related to IVF: Increased risks of multiple gestation, , and low weight, morbidity and mortality, placental complications such as previa, abruption and accreta. In addition to an increase in the risk of Gestation diabetes, preeclampsia and delivery. There is an increase in maternal morbidity with IVF with a small increase in thromboembolic events and hypertensive disorders. Will need EFW at 28 wks and q 3 wks afterwards, r/o accreta, start testing at 32 wks with weekly BPP and NST. The patient would like to contact [facility] for a care, instructions given to the patient to call for an appointment in our office in case of inability/ delayed 1st care appointment at [facility]. All questions answered, the patient verbalized understand Coding Level of Care Code Est Pt Level 3 (47126) Diagnoses Early stage of Z34.90
[2023-05-20 15:12] VITALS: BP 118/72; BMI 32.2
== END 2023-05-20 15:46 | disposition home or self-care (01) ==
LOC: HO.HWS 15:07
PROVIDERS: PCP Internal Medicine; Visit Provider Obstetrics & Gynecology
DX: Z34.90 Encounter for supervision of normal pregnancy, unspecified, unspecified trimester (principal)
CPT/HCPCS: 99213

== ENCOUNTER → 2023-05-20 15:07 | Outpatient (BNVA) | payer OTHER, SELFPAY | PROVIDERS: PCP Internal Medicine; Visit Provider Obstetrics & Gynecology ==

== ENCOUNTER 2023-06-14 13:29 | Outpatient (REF) | payer OTHER, SELFPAY ==
[2023-06-14 14:04] LABS: Basophils Percent Auto 0.2 % (0-2); Eosinophils Percent Auto 0.7 % (0-4); Hematocrit 37.6 % (37.0-47.0); Hemoglobin 12.9 g/dl (12.0-16.0); Imm Gran Abs Auto 0.02 X10*3/uL (0.00-0.03); Imm Gran Pct Auto 0.3 % (0.0-0.4); Lymphocytes Absolute Auto 1.2 X10*3/uL (1.2-4.9); Lymphocytes Percent Auto 19.3 % (20-40); MANUAL DIFF FLAG NO; Mean Corpuscular HGB Conc 34.3 g/dl (31.0-35.0); Mean Corpuscular Hemoglobin 31.9 pg (27.0-33.0); Mean Corpuscular Volume 92.8 fL (80.0-98.0); Mean Platelet Volume 9.5 fL (9.4-12.3); Monocytes Absolute Auto 0.4 X10*3/uL (0.1-1.2); Monocytes Percent Auto 6.6 % (2-11); Neutrophils Absolute Auto 4.4 x10*3/uL (2.0-8.3); Neutrophils Percent Auto 72.9 % (45-73); Platelet Count 245 X10*3/uL (160-400); Red Blood Count 4.05 X10*6/uL (4.20-5.50); Red Cell Distribution Width 11.7 % (11.0-16.0); White Blood Count 6.1 X10*3/uL (4.8-10.8)
[2023-06-15 04:55] LABS: Hepatitis B Surface Antigen Negative (Negative)
[2023-06-15 05:37] LABS: Syphilis Screen Nonreactive (Nonreactive)
[2023-06-15 05:43] LABS: HBsAGNum1 0.29 S/CO (0.00-0.99); HIV AB/AG Nonreactive (Nonreactive); HIV Num 1 0.04 S/CO (0.00-0.99); ~HepC Num1 0.09 S/CO (0.00-0.79); ~Hepatitis C Antibody Nonreactive (Nonreactive)
[2023-06-15 11:53] LABS: Rubella IgG Antibody 1.83 Index
== END 2023-06-14 13:30 | disposition home or self-care (01) ==
LOC: HO.LAB 13:29
PROVIDERS: Visit Provider Obstetrics & Gynecology
DX: Z34.01 Encounter for supervision of normal first pregnancy, first trimester (principal)
CPT/HCPCS: 36415; 85025; 86762; 86780; 86803; 86850; 86900; 86901; 87340; 87389

== ENCOUNTER 2024-02-23 14:15 | Outpatient (REF) | payer OTHER, SELFPAY ==
--- NOTE | ~2024-02-23 | US_ITS ---
EXAMINATION: MM DIAGNOSTIC DIGITAL BREAST TOMOSYNTHESIS, BILATERAL US BREAST LIMITED, LEFT MAMMOGRAPHY: CLINICAL INFORMATION: Palpable mass left breast 1:00 axis. Patient is 2 months , however not breast-feeding. Baseline examination. Remote history of excision of fibroadenoma left breast 10 years prior, upper outer left breast anterior one third. COMPARISON: Mammography: None. Baseline exam. TECHNIQUE: Digital breast tomosynthesis is performed in both the craniocaudal and mediolateral oblique views along with computer-aided detection (CAD). Synthesized 2D images are generated from the tomosynthesis. In addition, spot compression 3-D views of the left breast in the CC and MLO projections were obtained of the palpable region of concern, as well as a laterally exaggerated 3-D left CC view. FINDINGS: The breasts are heterogeneously dense, which may obscure small masses (ACR BI-RADS breast composition Category c). There are 2 circumscribed oval isodense masses in the right breast upper outer quadrant, in a similar larger isodense circumscribed mass in the left breast upper outer quadrant, correlating with the area of palpable concern as marked by the patient. These are consistent with bilateral cysts, however the area of palpable concern will be evaluated with ultrasound. There is mild scarring in the anterior left breast upper outer quadrant from prior benign fibroadenoma removal. Otherwise, there are no suspicious grouped calcifications or areas of architectural distortion in either breast. There is no skin or axillary abnormality. ULTRASOUND: CLINICAL INFORMATION: As above. Palpable focus of concern left breast upper outer quadrant 1:00 axis. COMPARISON: No relevant prior. TECHNIQUE: Targeted sonographic evaluation left breast was performed using a high frequency linear transducer. Attention was given to the upper outer quadrant to include the area of palpable concern. Selected archived documentation. FINDINGS: LEFT BREAST: -Within the 2:00 axis of the left breast, 6 cm from the nipple, there is a simple cyst measuring 2.2 cm in diameter, correlating with the focus of palpable concern. This finding is benign. There are no suspicious findings in the upper outer quadrant of left breast. US/US breast LT limited mamm only IMPRESSION: -There are no findings suspicious for malignancy in either breast. -There are benign findings in both breasts, most notably a 2.2 cm simple cyst left breast 2:00 axis, correlating with the area of palpable concern. No further follow-up recommended. -Recommend the patient resume annual screening at age 40. OVERALL ASSESSMENT: Mammography: BI-RADS 2 - Benign Findings Ultrasound: BI-RADS 2 - Benign Findings RECOMMENDATION: Mammo at 40 or earlier if clinically needed Electronically signed by: Edgar Alex MD 02/23/2024 04:34 PM EDT RP
== END 2024-02-23 14:16 | disposition home or self-care (01) ==
LOC: HO.MAMMO 14:15
PROVIDERS: PCP Internal Medicine; Visit Provider Obstetrics & Gynecology
DX: N63.21 Unspecified lump in the left breast, upper outer quadrant (principal)
CPT/HCPCS: 76642; 77062; 77066

== ENCOUNTER → 2024-02-23 14:30 | Outpatient (BNV) | payer OTHER, SELFPAY | PROVIDERS: PCP Internal Medicine; Visit Provider Radiology Diagnostic Radiology | DX: N63.11 Unspecified lump in the right breast, upper outer quadrant (principal); N63.21 Unspecified lump in the left breast, upper outer quadrant | CPT/HCPCS: 76642; 77062; 77066 ==